=== PATIENT | male | born 1985 | race Caucasian/White ===

== ENCOUNTER 2025-03-14 13:55 | Emergency (ER) | payer MEDICAID ==
[~2025-03-14] VITALS: Ht 190.5 cm; Wt 150.3 kg
--- NOTE | 2025-03-14 14:59 | RADIOLOGY REPORT ---
INDICATION: BACK PAIN COMPARISON: None TECHNIQUE: 3 views of the lumbar spine were obtained. FINDINGS: The lumbar vertebral alignment is normal. The intervertebral disc spaces are well-maintained. No significant facet arthropathy is noted. No acute fracture, vertebral compression deformity or aggressive osseous lesions. The paravertebral soft tissues are grossly unremarkable. IMPRESSION: No acute fracture.
--- NOTE | 2025-03-14 19:30 | Physician Documentation ---
History of Present Illness ~ Chief Complaint: Back Pain Stated Complaint: BACK PAIN Time Seen by MD: 17:20 HPI Patient is a 39-year-old male that presents with the emergency department for evaluation of low back pain x2 days. Patient denies injury reports that he has been sleeping on a new bed he feels like his back he has strained due to sleeping conditions. Important that the pain is in the lower left and right side of his spine radiates down his butt cheeks makes it difficult to sit sometimes exacerbated with bending. Patient denies any saddle anesthesia incontinence of bowel or bladder no numbness and tingling in upper or lower extremities. Medication Reconciliation Allergies: Coded Allergies: No Known Allergies (Unverified , 03/14/25) Review of Systems ROS As stated above in the HPI, otherwise all systems are reviewed and negative. Physical Exam Physical Exam Vital Signs: Temperature: 97.3, Source: Oral, Heart Rate: 80, Respiratory Rate: 16, BP: 157/96, Pulse Oximetry: 96, Weight: 150.350 Oxygen Flow Rate: 0 Physical Exam VITALS: Reviewed and as above. GENERAL: Alert, no apparent distress. BACK: No CVA tenderness, or swelling, pain with palpation and range of motion in the lumbosacral region. MUSCULOSKELETAL No deformities, no edema, lumbosacral back pain SKIN: Warm and dry, no rash NEURO: Oriented x4, No motor or sensory deficit PSYCH: Normal mood and affect, no agitation Progress Results/Orders Results/Orders Completed Orders - LATOYA REEDER Ketorolac Trometh 30mg/Ml Vial (Toradol (03/14/25 19:30) Methylprednisolone Sod Succ (Solumedrol (03/14/25 19:30) Cyclobenzaprine Tablet (Flexeril Tablet) (03/14/25 19:30) Medications Received in ER Medications (Trade) Dose Ordered Sig/Rhett Route PRN Reason Start Time Stop Time Status Last Admin Dose Admin (Toradol inj. 30mg/ml) 30 mg ONCE ONCE IM 03/14/25 19:30 03/14/25 19:31 DC 03/14/25 19:38 30 MG (SoluMEDROL 125mg inj) 125 mg ONCE ONCE IM 03/14/25 19:30 03/14/25 19:31 DC 03/14/25 19:38 125 MG (Flexeril tablet) 10 mg ONCE ONCE PO 03/14/25 19:30 03/14/25 19:31 DC 03/14/25 19:38 10 MG Vital Signs 03/14/25 03/14/25 14:13 19:38 Temp 97.3 Pulse 80 Resp 16 16 B/P (MAP) 157/96 Pulse Ox 96 O2 Flow Rate 0 Medical Decision Making Findings This patient presents with back pain most consistent with sciatica/lumbosacral sprain. Differential diagnoses includes lumbago versus musculoskeletal spasm / strain versus sciatica. . No back pain red flags on history or physical. Presentation not consistent with malignancy (lack of history of malignancy, lack of B symptoms), fracture (no trauma, no bony tenderness to palpation), cauda equina (no bowel or urinary incontinence/retention, no saddle anesthesia, no distal weakness), AAA, viscus perforation, osteomyelitis or epidural abscess (no IVDU, vertebral tenderness), renal colic, pyelonephritis (afebrile, no CVAT, no urinary symptoms). Imaging negative for any injury or abnormal findings. Follo w up with the primary care provider return to the emergency department if symptoms worsen or additional concerning symptoms present. Differential Dx:Considerations: Include: AAA, Aortic dissection, Appendicitis, Bowel obstruction, Cholelithiasis, Cholangitis, DJD, Fracture, Hepatitis, HNP, Musculoskeletal pain, Pancreatitis, Pyelonephritis, Renal infarction, Strain, Urinary obstruction, Urolithiasis, Urinary tract infection, Other Departure Disposition: 01 HOME / SELF CARE / HOMELESS Impression: Primary Impression: Low back pain Additional Impression: Strain of lumbar region Condition: Stable Discharge Instructions: Chronic Back Pain, Sciatica, Lumbosacral Strain Additional Instructions: Today you were evaluated in the emergency department for lumbosacral strain. Did with a Toradol injection, steroid injection for anti-inflammatory proper, Flexeril he will be prescribed medications for your discharge. Take medications as prescribed. He is referred to primary care provider. Return to the emergency department if you have any worsening of symptoms or any additional concerning symptoms that we discussed here today present. Referrals: NO PRIMARY CARE PROVIDER (PCP) Prescriptions Cyclobenzaprine* (Cyclobenzaprine*) 10 Mg Tablet 1 TAB PO TID for 5 Days, #15 TAB Prov: LATOYA REEDERP 03/14/25 Education Educated: Patient Educated regarding: diagnosis, treatment, need for follow up LATOYA REEDER [facility] Mar 14, 2025 19:30
[2025-03-14] MEDS: ketorolac trometh 30MG/ML vial 30 MG/ML VIAL IM ONE (19:38)
[2025-03-14] MEDS ORDERED: CYCL-1 PO (20:36)
[2025-03-14 20:44] VITALS: BP 169/92; PULSE 92; RESP 16; TEMP 97.3; O2SAT 99
== END 2025-03-14 20:45 | disposition home or self-care (01) ==
LOC: ER 13:56
DX: S39.012A Strain of muscle, fascia and tendon of lower back, initial encounter (principal); X58.XXXA Exposure to other specified factors, initial encounter; Y93.89 Activity, other specified; Y92.89 Other specified places as the place of occurrence of the external cause; Y99.8 Other external cause status
CPT/HCPCS: 72100; 96372; 99284; J1885; J2919